=== PATIENT | female | born 1995 | race Caucasian/White ===

== ENCOUNTER 2018-11-03 06:21 | Inpatient (IN) | payer OTHER ==
[2018-11-02 14:30] VITALS: BMI 22.0
--- NOTE | 2018-11-02 15:28 | HP ---
HISTORY OF PRESENT ILLNESS: Ms. 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 She actually was scheduled for Chiari decompression a few years ago, but then became and held off on surgery at that time. She returns now with an MRI from [facility] revealing distention of the cerebellar tonsils into the spinal canal consistent with Arnold-Chiari type 1 and would like to pursue surgery at this time. PAST MEDICAL HISTORY: Significant for chronic headaches, gastric ulcers. PAST SURGICAL HISTORY: She has surgical history of laparoscopic cholecystectomy. CURRENT MEDICATIONS: Nexplanon. ALLERGIES: NO KNOWN DRUG ALLERGIES. PHYSICAL EXAMINATION: GENERAL: The patient is alert and oriented x3. MUSCULOSKELETAL: Gait is normal. No ataxia. Upper extremity and lower extremity motor exams are normal. Cranial nerves are all intact grossly. REVIEW OF SYSTEMS: The patient reports headaches and neck stiffness. She denies numbness or tingling. She denies nausea or vomiting. She denies visual disturbance. ASSESSMENT: Arnold-Chiari type 1 malformation. PLAN: Dr. Sandoval met with the patient, reviewed imaging, advocated for Chiari decompression. He explained to the patient the risks, benefits, and alternatives to the procedure. The patient expressed understanding and elected to move forward with surgery as discussed. I do believe the patient is mentally competent and capable of making medical decisions for herself, and we will move forward with surgery as planned. Job ID: [id number]
[2018-11-03] MEDS ORDERED: Bacitracin Zinc Ointment 30 gm TUBE ONE (08:04)
[2018-11-03] MEDS ORDERED: Thrombin 5000 UNITS/5 ML VIAL ONE ×2 (08:35→09:45)
[2018-11-03] MEDS ORDERED: Bupivacaine HCl 0.5%/Epinephrine 1:200,000/PF 30 ml Vial ONE (08:35)
[2018-11-03] MEDS ORDERED: Fentanyl 100 MCG/2 ML VIAL ONE ×4 (08:42→11:39)
--- NOTE | 2018-11-03 09:13 | PRG ---
DATE OF SERVICE: 11/03/2018 SUBJECTIVE: Ms. Bui presents today for surgery. I met with her and her significant other in the day stay area to review with them again what she and I last discussed on the telephone. She had a long history of suboccipital headaches and numerous other symptoms, which may very well correlate to her known Chiari malformation. She has been seeing Pain Management colleagues of [facility] in the [place] area for ongoing headache management. I did review with her again and her today the diagnosis, her imaging as well as the surgical procedure, which will be Chiari decompression. I did explain to them we will do a suboccipital craniectomy with removal of the posterior arch of C1 without opening of the dura given the underlying nature of her Chiari. All the risks, benefits, and alternatives of this procedure were discussed with them again. I reviewed with them all their questions. They provided the informed consent and we will move forward. Job ID: [id number]
[2018-11-03] MEDS ORDERED: Sodium Chloride 0.9% 10 ML ONE (09:28)
[2018-11-03] MEDS ORDERED: Sodium Chloride 0.9% 20 ML ONE (09:51)
[2018-11-03] MEDS ORDERED: Ondansetron HCl/PF 4 MG/2 ML Vial IVP PRN (11:18)
[2018-11-03] MEDS ORDERED: Promethazine HCl 25 MG/ML VIAL IM PRN (11:18)
[2018-11-03] MEDS ORDERED: Promethazine HCl 25 MG/ML VIAL SLOW IVP PRN (11:18)
[2018-11-03] MEDS ORDERED: Acetaminophen 325 MG TAB PO PRN (11:25)
[2018-11-03] MEDS ORDERED: Mag-Al 1200 mg/1200 mg/30 ML UDCUP PO PRN (11:25)
[2018-11-03] MEDS ORDERED: diphenhydrAMINE 50 MG/ML VIAL IVP PRN (11:25)
[2018-11-03] MEDS ORDERED: Acetaminophen/Codeine 30-300mg Tablet PO PRN (11:25)
[2018-11-03] MEDS ORDERED: Bisacodyl 10 MG SUPP PR PRN (11:25)
[2018-11-03] MEDS ORDERED: Ondansetron PF 4 MG/2 ML Vial IVP PRN (11:25)
[2018-11-03] MEDS ORDERED: Promethazine HCl 25 MG/ML VIAL IM/IV PRN (11:30)
[2018-11-03] MEDS ORDERED: Promethazine HCl 25 MG/ML VIAL ONE (11:40)
[2018-11-03] MEDS ORDERED: ETONOGESTREL 68 MG FS SCH (13:00)
[2018-11-03] MEDS: Acetaminophen/Codeine 30-300mg Tablet PO PRN ×4 (14:43→22:58)
[2018-11-03] MEDS: Sodium Chloride 0.9% 1,000 ML IV SCH (14:44)
[2018-11-03] MEDS: Cyclobenzaprine 10 MG TAB PO PRN ×2 (14:57→22:58)
--- NOTE | 2018-11-03 15:33 | OP ---
DATE OF PROCEDURE: 11/03/2018 PEOPLESOFT: Graeme Thompson PA-C INDICATION: Pain and prevent neurologic decline. DIAGNOSES: Chiari malformation procedures, suboccipital craniectomy, partial C1 laminectomy, decompression. ANESTHESIA: General. DESCRIPTION OF PROCEDURE: The patient was brought into the operating room and placed under general anesthesia. A three-point Blanchard opinion was applied to her head and she was carefully flipped from the supine to prone position. The Blanchard opinion was carefully affixed to the table. A linear incision was planned from the inion down to the upper cervical spine. After prepping and draping and after an appropriate preoperative pause, the incision was created. The muscles were swept away from midline. Self-retaining retractors were placed. After dissecting muscle and soft tissue away from the suboccipital region and C1, packing machine operator drill bit was used to place two bur holes in the suboccipital bone. Adson rongeur as well as acorn drill bit were used to complete the bone work as were 2 and 3 mm Kerrisons. The superior portion of C1 was also removed. At the completion of the procedure, the suboccipital region as well as generous space just above C1 was completed by performing a decompression at this area. The wound was copiously irrigated. Hemostasis was maintained throughout. The wound was then closed in anatomic layers and a pressure dressing was applied. There were no known procedural complications. Job ID: [id number]
[2018-11-03] MEDS: CEFAZOLIN 2 GM in Premix Bag 1 BAG IVPB SCH (16:15)
[2018-11-03] MEDS ORDERED: diphenhydrAMINE 50 MG/ML VIAL ONE (16:21)
[2018-11-03] MEDS ORDERED: Dexamethasone 20 MG/5 ML VIAL ONE (16:21)
[2018-11-03] MEDS ORDERED: Glycopyrrolate 0.2 MG/ML 5 ML SYRINGE ONE (16:21)
[2018-11-03] MEDS ORDERED: PROPOFOL 200 MG/20 ML VIAL ONE (16:21)
[2018-11-03] MEDS ORDERED: Lidocaine 1% PF 5 ML VIAL ONE (16:21)
[2018-11-03] MEDS ORDERED: PHENYLEPHRINE-NS 100 MCG/ML 10 ML SYRINGE ONE (16:21)
[2018-11-03] MEDS ORDERED: Rocuronium Bromide 10 MG/ML (10ML VIAL) ONE (16:21)
[2018-11-03] MEDS: predniSONE 20 MG TAB PO SCH (20:09)
[2018-11-04] MEDS: CEFAZOLIN 2 GM in Premix Bag 1 BAG IVPB SCH ×2 (00:56→08:44)
[2018-11-04] MEDS: Sodium Chloride 0.9% 1,000 ML IV SCH ×2 (00:57→13:18)
[2018-11-04] MEDS ORDERED: HYDROcodone/Acetaminophen 7.5/325 mg Tablet PO PRN (01:06)
[2018-11-04] MEDS: HYDROcodone/Acetaminophen 7.5/325 mg Tablet PO PRN ×2 (01:21→05:13)
[2018-11-04 05:16] LABS: #Lymphocytes 0.8 thou/uL (1.20-3.40); #Monocytes 0.5 thou/uL (0.11-0.59); #Neutrophils 7.3 thou/uL (1.40-6.50); %Basophils 0.2 % (0.0-1.0); %Eosinophils 0.1 % (0.0-10.0); %Lymphocytes 9.8 % (21.0-51.0); %Monocytes 5.3 % (0.0-10.0); %Neutrophils 84.6 % (42.0-75.0); Mean Corpuscular HGB CONC 33.2 g/dL (32.0-36.0); Mean Corpuscular Hemoglobin 30.6 pg (27.0-31.0); Mean Platelet Volume 6.5 fL (7.4-10.4); Platelet Count 255 thou/uL (130-400); Red Blood Cell (RBC) Count 3.92 mill/uL (4.20-5.40); White Blood Cell (WBC) Count 8.7 thou/uL (4.8-10.8)
[2018-11-04 05:29] LABS: Anion Gap 12 mmol/L (10-20); BUN (Urea Nitrogen) 6 mg/dL (7.0-18.7); Calc. Creatinine Clearance 142 mL/min (70-130); Calcium 9.2 mg/dL (7.8-10.44); Carbon Dioxide 25 mmol/L (22-29); Chloride 107 mmol/L (98-107); Estimated GFR-MDRD Greater than 90; Glucose 138 mg/dL (70-105); Potassium 4.1 mmol/L (3.5-5.1); Sodium 140 mmol/L (136-145)
[2018-11-04] MEDS ORDERED: HYDROcodone/Acetaminophen 10/325 mg Tablet PO PRN (07:48)
[2018-11-04] MEDS ORDERED: Polyethylene Glycol 3350 17 GM Packet PO PRN (07:49)
[2018-11-04] MEDS: HYDROcodone/Acetaminophen 10/325 mg Tablet PO PRN ×2 (08:44→14:23)
[2018-11-04] MEDS: Cyclobenzaprine 10 MG TAB PO PRN (08:44)
[2018-11-04] MEDS: predniSONE 20 MG TAB PO SCH (08:44)
[2018-11-04 11:18] VITALS: BP 100/58; TEMP 98
--- NOTE | 2018-11-06 08:50 | DIS ---
DATE OF ADMISSION: 11/03/2018 DATE OF DISCHARGE: 11/04/2018 HISTORY: Ms. Bui is a 23-year-old woman, who was admitted to [facility] by Dr. Shahzad Sandoval on November 03, 2018. ADMISSION DIAGNOSES: Status post Chiari decompression and Arnold-Chiari type 1 malformation. DISCHARGE DIAGNOSES: Status post Chiari decompression and Arnold-Chiari type 1 malformation. HOSPITAL COURSE: Ms. Bui was admitted for 1 evening for observation after surgical intervention to decompress her Chiari 1 malformation. She did have some moderate pain control issues, particularly given her multitude of opiate allergies as well as NSAID allergies. We eventually gained better control using [place] and transdermal fentanyl which she was discharged to home with. She ambulated well in the hallways, has considerable and expected posterior neck pains and shoulder pains. All of this, I am confident will improve in the next 48 hours and I discussed this with her. No consultations were ordered, no lab work or imaging was ordered, and the patient was discharged in good condition to home with anticipated followup in 2 weeks. Job ID: [id number]
== END 2018-11-04 15:00 | disposition home or self-care (01) | DRG 27 ==
LOC: SURG A 06:21 → EDSTATUS 10:25 → SURG B 12:05
PROVIDERS: ADMIT Neurological Surgery; ATTEND Neurological Surgery
PROC: 00NC0ZZ Release Cerebellum, Open Approach (ICD-10-PCS; principal; 2018-11-03)
DX: G93.5 Compression of brain (principal); K25.9 Gastric ulcer, unspecified as acute or chronic, without hemorrhage or perforation; Z79.899 Other long term (current) drug therapy; Z90.49 Acquired absence of other specified parts of digestive tract
CPT/HCPCS: 36415; 80048; 85025; J0670; J0690; J1100; J1200; J2001; J2550; J2704; J3010; J3490; J7512